=== PATIENT | female | born 1990 | race Caucasian/White ===

== ENCOUNTER 2022-01-28 21:30 | Inpatient (IN) | payer OTHER | END 2022-01-28 22:35 | disposition left against medical advice (07) | DRG 566 | LOC: SPU 21:30 → OBSVTOIN 21:30 | PROVIDERS: ADMIT Obstetrics & Gynecology; ATTEND Obstetrics & Gynecology | DX: O47.1 False labor at or after 37 completed weeks of gestation (principal); Z3A.38 38 weeks gestation of pregnancy; Z53.29 Procedure and treatment not carried out because of patient's decision for other reasons ==

== ENCOUNTER 2022-01-29 00:30 | Inpatient (IN) | payer OTHER ==
[~2022-01-29] VITALS: Ht 152.4 cm; Wt 68.0 kg
[2022-01-29] MEDS ORDERED: NALBUPHINE HCL 10 MG/ML AMP IVP PRN (00:45)
[2022-01-29] MEDS ORDERED: TERBUTALINE SULFATE 1 MG/ML VIAL SUBCUT ONE (00:45)
[2022-01-29] MEDS ORDERED: LR 1,000 ML IV SCH (00:45)
[2022-01-29] MEDS ORDERED: LR 1,000 ML IV ONE (00:45)
[2022-01-29] MEDS ORDERED: NALBUPHINE HCL 10 MG/ML AMP IM PRN (00:45)
[2022-01-29] MEDS ORDERED: LR 500 ML IV ONE (00:45)
[2022-01-29] MEDS ORDERED: OXYTOCIN/0.9 % SODIUM CHLORIDE 1,000 ML IV SCH (00:45)
[2022-01-29] MEDS ORDERED: OXYTOCIN/0.9 % SODIUM CHLORIDE 1,000 ML IV ONE ×2 (01:15→04:45)
[2022-01-29 01:47] LABS: HEMOGLOBIN 11.9 g/dL (12.0-16.0); NEUTROPHILS # (AUTO) 10.6 K/uL (1.8-7.7)
[2022-01-29 02:22] LABS: BASOPHILS # (AUTO) 0.1 K/uL (0.0-0.2); BASOPHILS % (AUTO) 0.4 % (0.0-2.0); EOSINOPHILS % (AUTO) 0.2 % (0.0-4.0); HEMATOCRIT 34.5 % (36-48); LYMPHOCYTES # (AUTO) 2.2 K/uL (1.0-5.5); LYMPHOCYTES % (AUTO) 15.9 % (20.5-51.5); MEAN CORPUSCULAR HEMOGLOBIN 31 pg (27-31); MEAN CORPUSCULAR HGB CONC 35 % (32-36); MEAN CORPUSCULAR VOLUME 90 fL (79.0-98.0); MONOCYTES # (AUTO) 0.9 K/uL (0.0-1.0); MONOCYTES % (AUTO) 6.7 % (1.7-9.3); NEUTROPHILS % (AUTO) 76.8 % (40.0-70.0); PLATELET COUNT (AUTO) 238 K/uL (130-430); RED BLOOD CELL COUNT(AUTO) 3.85 MIL/uL (4.2-6.2); RED CELL DISTRIBUTION WIDTH 13.1 % (9.0-15.0); WHITE BLOOD COUNT (AUTO) 13.8 K/uL (4.8-10.8)
[2022-01-29] MEDS ORDERED: METHYLERGONOVINE MALEATE 0.2 MG TABLET PO PRN (04:45)
[2022-01-29] MEDS ORDERED: DERMOPLAST SPRAY TP PRN (04:45)
[2022-01-29] MEDS ORDERED: RHO(D) IMMUNE GLOBULIN/MALTOSE 1500 UNITS/1.3 ML (WINHRO) IM PRN (04:45)
[2022-01-29] MEDS ORDERED: OXYCODONE/ACETAMINOPHEN 5-325 TABLET PO PRN (04:45)
[2022-01-29] MEDS ORDERED: HYDROcodone/ACETAMIN 5-325 MG TAB (NORCO/ VICODIN) PO PRN (04:45)
[2022-01-29] MEDS ORDERED: WITCH HAZEL LEAF 1 MED.PAD MED.PAD TP PRN (04:45)
[2022-01-29] MEDS ORDERED: NALOXONE HCL 0.4 MG/ML AMP (NARCAN) IVP PRN (04:45)
[2022-01-29] MEDS: IBUPROFEN 600 MG TABLET PO SCH ×3 (04:51→18:38)
[2022-01-29] MEDS: DOCUSATE SODIUM 100 MG CAPSULE PO PRN (10:15)
[2022-01-29] MEDS ORDERED: TEMAZEPAM 15 MG CAPSULE PO PRN (21:00)
[2022-01-29] MEDS: OXYCODONE/ACETAMINOPHEN 5-325 TABLET PO PRN (21:37)
[2022-01-30] MEDS: IBUPROFEN 600 MG TABLET PO SCH ×2 (00:12→06:06)
[2022-01-30 07:41] LABS: HEMATOCRIT 25.9 % (36-48); HEMOGLOBIN 8.9 g/dL (12.0-16.0)
[2022-01-30] MEDS: OXYCODONE/ACETAMINOPHEN 5-325 TABLET PO PRN (08:58)
[2022-01-30] MEDS: DOCUSATE SODIUM 100 MG CAPSULE PO PRN (08:59)
[2022-01-30] MEDS ORDERED: MEASLES,MUMPS&RUBELLA VACC/PF 12500 UNIT/0.5 ML VIAL SUBQ PRN (12:30)
== END 2022-01-30 13:49 | disposition home or self-care (01) | DRG 560 ==
LOC: SPU 00:30
PROVIDERS: ADMIT Obstetrics & Gynecology; ATTEND Obstetrics & Gynecology
PROC: 10D07Z6 Extraction of Products of Conception, Vacuum, Via Natural or Artificial Opening (ICD-10-PCS; principal; 2022-01-29)
PROC: 0KQM0ZZ Repair Perineum Muscle, Open Approach (ICD-10-PCS; 2022-01-29)
DX: O77.0 Labor and delivery complicated by meconium in amniotic fluid (principal); Z37.0 Single live birth; O69.81X0 Labor and delivery complicated by cord around neck, without compression, not applicable or unspecified; Z20.822 Contact with and (suspected) exposure to COVID-19; O70.1 Second degree perineal laceration during delivery; Z3A.39 39 weeks gestation of pregnancy
CPT/HCPCS: 36415; 85018; 85025; 86592; 86886; 86900; 86901; J2300; J2590